=== PATIENT | male | born 1945 | race Caucasian/White ===

== ENCOUNTER 2020-03-15 13:12 | Inpatient (IN) ==
--- NOTE | 2020-03-15 13:49 | ERNOTE ---
Dyspnea - General Presenting Symptoms: shortness of breath Time Seen by Provider: 03/15/20 13:33 Source: patient Exam Limitations: no limitations - Immun/Allergies/Home Medications Immunizations: IMMUNIZATION HX Immunizations Up to Date Yes History of Influenza Vaccine Yes Hx Pneumococcal Vaccination Yes Allergies/Adverse Reactions: Allergies No Known Allergies Allergy (Unverified 03/15/20 13:25) Home Medications: HOME MEDICATIONS Acetaminophen [Mapap] 500 mg PO BID PRN 03/15/20 [Last Taken Unknown] Aspirin 81 mg PO DAILY 03/15/20 [Last Taken Unknown] Bumetanide 1 mg PO DAILY 03/15/20 [Last Taken Unknown] Carvedilol [Coreg] 6.25 mg PO BID 03/15/20 [Last Taken Unknown] Fexofenadine HCl 60 mg PO DAILY 03/15/20 [Last Taken Unknown] Fluticasone Propionate [Flovent Diskus] 50 mcg IH DAILY 03/15/20 [Last Taken Unknown] Insulin Aspart [Insulin Aspart Penfill] See Protocol SQ ACHS 03/15/20 [Last Taken Unknown] Insulin Detemir [Levemir] 44 units SC DAILY 03/15/20 [Last Taken Unknown] Leuprolide Acetate [Eligard] 45 mg SQ Q6M 03/15/20 [Last Taken Unknown] Loperamide HCl [Diamode] 2 mg PO BID 03/15/20 [Last Taken Unknown] Losartan Potassium 12.5 mg PO BID 03/15/20 [Last Taken Unknown] Melatonin 10 mg PO HS 03/15/20 [Last Taken Unknown] Montelukast Sodium 10 mg PO DAILY 03/15/20 [Last Taken Unknown] Multivit-Min/Iron Fum/Folic AC [Qvpkx-Ekgngdt-Vglvyobu Tablet] 1 ea PO DAILY 03/15/20 [Last Taken Unknown] Nitroglycerin 0.4 mg SL PRN PRN 03/15/20 [Last Taken Unknown] Saw [place] Fruit/Zinc Picoli [Saw [place] 450 mg Capsule] 900 mg PO DAILY 03/15/20 [Last Taken Unknown] Tamsulosin HCl [Flomax] 0.4 mg PO DAILY 03/15/20 [Last Taken Unknown] traZODone HCL [Trazodone HCl] 50 mg PO DAILY 03/15/20 [Last Taken Unknown] - History of Present Illness Narrative: states the patient has been weak for some time due to comorbidities but over the past few days he has gotten more more week where he can take 4 or 5 steps and then feels like he is going to fall. Patient's family does have Covid and did have exposure to them a week or more ago. Severity: moderate Initiating event: Reports: none Frequency of episodes: Reports: no prior episodes Review of Systems - Review of Systems Constitutional: Present: fatigue, malaise. Absent: recent illness, fever, chills EYE: Absent: vision changes ENT: Absent: nose congestion, nasal drainage Respiratory: Present: shortness of breath, cough Cardiology: Absent: chest pain, palpitations Gastrointestinal/Abdominal: Absent: nausea, vomiting, abdominal pain Genitourinary: Absent: frequency, dysuria Musculoskeletal: Absent: back pain, muscle pain Skin: Absent: rash Neurological: Present: dizziness/light-headedness. Absent: headache Endocrine: Present: excessive sweating Hematologic/Lymphatic: Absent: easy bruising, easy bleeding Medical History (Last Reviewed 03/15/20 @ 15:39 by Luis Enrique Gaviria DO) Alzheimer disease Alzheimer's dementia, late onset Diabetes mellitus History of diverticulitis History of left bundle branch block (LBBB) History of prostate cancer Hx of congestive heart failure Hx of diabetic retinopathy Hx of gastritis Hx of irritable bowel syndrome Hx of kidney disease Hx of rheumatoid arthritis Nonalcoholic fatty liver disease Sleep apnea Surgical History: Surgical History (Last Reviewed 03/15/20 @ 15:39 by Luis Enrique Gaviria DO) History of arthroplasty of right ankle Hx of cholecystectomy Hx of right knee surgery Hx of sinus surgery Family History: Family History (Last Reviewed 03/15/20 @ 15:39 by Luis Enrique Gaviria DO) Other No pertinent family history Social History: (Last Reviewed 03/15/20 @ 15:39 by Lusi Enrique Gaviria DO) Social History: lives independently: No household members: spouse caregiver/support person: Yes caregiver/support person comment: parent marital status: Service: No Tobacco: Smoking Status: Never smoker Alcohol: Alcohol type: beer alcohol intake frequency: a few times a month Substance Use: substance use type: does not use Physical Exam - Physical Exam General Appearance: Present: wd/wn, alert, no apparent distress Head Exam: Present: normal inspection, no evidence of injury Neck: Present: normal inspection, nontender, supple Respiratory: Present: no respiratory distress, normal breath sounds, lungs clear Cardiovascular/Chest: Present: regular rate, rhythm, no murmur Gastrointestinal/Abdominal: Present: normal bowel sounds, nontender, nondistended, soft Back Exam: Present: normal inspection, normal range of motion Extremity Exam: Present: normal inspection, normal range of motion, extremity edema Neurological Exam: Present: alert, oriented, normal mood/affect, no motor/sensory deficits Skin Exam: Present: normal color, warm/dry Lymphatic Exam: Present: no adenopathy Progress - Results and Orders Patient's Lab Results:: I have reviewed the patient's lab results. Results and Orders: Laboratory Tests 03/15/20 03/15/20 03/15/20 13:50 13:54 13:54 WBC 6.9 Hgb 10.0 L Hct 30.5 L Plt Count 259 D-Dimer Sodium 134 Potassium 4.2 Chloride 99 Carbon Dioxide 29.8 BUN 23 Creatinine 1.55 H Random Glucose 96 Lactic Acid, Venous Calcium 9.1 Total Bilirubin 0.4 AST 26 ALT 29 Alkaline Phosphatase 63 Troponin I 0.022 B-Natriuretic Peptide 754 H SARS-CoV-2 (PCR) Detected H 03/15/20 03/15/20 13:54 14:16 WBC Hgb Hct Plt Count D-Dimer 0.85 H Sodium Potassium Chloride Carbon Dioxide BUN Creatinine Random Glucose Lactic Acid, Venous 0.9 Calcium Total Bilirubin AST ALT Alkaline Phosphatase Troponin I B-Natriuretic Peptide SARS-CoV-2 (PCR) - Vital Signs Patient's Vital Signs:: I have reviewed the patient's vital signs. Vital Signs: Vital Signs 03/15/20 13:23 Temperature 36.6 C Pulse Rate 72 Respiratory Rate 22 H Blood Pressure 134/69 O2 Sat by Pulse Oximetry 91 L - EKG EKG #1 EKG: NSR, LBBB EKG read: Interp. by me - X-Ray X-Ray #1 X-Ray: chest Interpretation: Reviewed by me X-ray Comments: Findings: Heart size and vascularity appear within normal limits. There is elevation of the right hemidiaphragm nonspecific. There is focal consolidation in the left mid to lower lung field. This could be atelectasis or scarring but developing infiltrate must be considered. IMPRESSION: CONSOLIDATION LEFT MID TO LOWER LUNG FIELD ATELECTASIS/SCARRING VERSUS DEVELOPING INFILTRATE. NONSPECIFIC ELEVATION RIGHT HEMIDIAPHRAGM. Electronically signed by Harshil Angela M.D.. - Progress/Reassessment Chief Complaint: Dyspnea Progress Note-Subjective: 03/15/20 15:42 I spoke with the patient and his about admission and Covid positive status. They agreed to admission and expressed understanding. 03/15/20 15:[address] Pierre he initially agreed with admission and then called me back and stated he felt like this is a patient that could use outpatient oxygen and bamlanivimab. He stated he would call case management and get their opinion and assistance. 03/15/20 16:40 received a call back from Dr. Pierre and he requested observation admit. Departure Clinical Impression: Pneumonia due to COVID-19 virus, Hypoxia - Departure Disposition: Still a patient Condition: Stable
[2020-03-15 14:06] LABS: Hematocrit 30.5 % (42.0-52.0); Mean Cell Volume 90.8 fl (78-100); Mean Corpuscular Hemoglobin 29.8 pg (27-31); Mean Corpuscular Hgb Conc 32.8 g/dl (32-36); Neutrophil # 4.9 K/mm3 (1.3-6.0); Neutrophil % 71.9 % (42-75.0); Platelet Count 259 K/mm3 (150-450); Red Blood Count 3.36 M/mm3 (4.7-6.0); Red Cell Distribution Width 12.5 % (11.5-14.0); White Blood Count 6.9 K/mm3 (4.0-10.5)
[2020-03-15 14:30] LABS: Troponin I 0.022 ng/mL (0.00-0.10)
[2020-03-15 14:34] LABS: Albumin * 3.4 gm/dl (3.4-5.0); Anion Gap 9.4 mmol/L (6.8-13.8); BUN/Creatinine Ratio 14.8 (9.0-21.6); Bilirubin, Total 0.4 mg/dL (0.0-1.1); Ca. Corrected For Albumin 9.3 mg/dL (8.4-10.2); Calcium * 9.1 mg/dL (7.9-10.9); Carbon Dioxide 29.8 mmol/L (24-32.6); Potassium 4.2 mmol/L (3.4-4.6); Total Protein 7.1 gm/dL (6.2-8.2)
[2020-03-15 15:00] LABS: Urine Bilirubin Negative (NEGATIVE); Urine Blood 25 /ul (NEGATIVE); Urine Ketone Negative (NEGATIVE); Urine Nitrite Negative (NEGATIVE); Urine Protein Negative (NEGATIVE); Urine Specific Gravity 1.015 SP.GR. (1.005-1.030); Urine Urobilinogen Normal (NORMAL)
[2020-03-15 15:53] LABS: Urine Appearance Clear (CLEAR); Urine Bacteria TRACE; Urine Color Yellow; Urine WBC TRACE /hpf (0-5)
[2020-03-15] MEDS ORDERED: ENOXAPARIN SODIUM 100 MG/ML SYRG SC SCH (16:45)
[2020-03-15] MEDS ORDERED: ENOXAPARIN SODIUM 40 MG/0.4 ML SYRG SC SCH (18:00)
[2020-03-15] MEDS ORDERED: DEXAMETHASONE 4 MG TABLET PO ONE (18:05)
[2020-03-15] MEDS ORDERED: NORMAL SALINE 1,000 ML IV ONE (18:07)
--- NOTE | 2020-03-15 18:09 | HP ---
Chief Complaint - Chief Complaint Date of Service: 03/15/20 Time of Service: 18:09 Chief Complaint: Covid pneumonia, weakness, shortness of breath History of Present Illness: 74-year-old male came into the ER after 3 days of worsening shortness of breath, weakness, frequent falls. Patient found to be Covid positive. Lab work fairly benign: White count 6.9, hemoglobin and hematocrit 10 and 35, creatinine of 1.55 with a GFR 47, mildly elevated BNP at 754 but otherwise the rest was unremarkable. Patient initially satting around 88 to 89% on room air when he came in and was put on 2 L and it bumped up to 92 to 94% and he was comfortable. Patient without any respiratory distress. Due to weakness and patient being in the window to receive antiviral medication, he was placed in observation for treatment and physical therapy evaluation as well as oxygen administration to maintain appropriate sats. Patient did not require oxygen at home. Patient with significant advanced Alzheimer's dementia, insulin-dependent diabetes, history of congestive heart failure, chronic kidney disease, rheumatoid arthritis, sleep apnea. Patient is unknown to this facility. Medical History (Last Reviewed 03/15/20 @ 15:39 by Luis Enrique Gaviria DO) Alzheimer disease Alzheimer's dementia, late onset Diabetes mellitus History of diverticulitis History of left bundle branch block (LBBB) History of prostate cancer Hx of congestive heart failure Hx of diabetic retinopathy Hx of gastritis Hx of irritable bowel syndrome Hx of kidney disease Hx of rheumatoid arthritis Nonalcoholic fatty liver disease Sleep apnea Surgical History: Surgical History (Last Reviewed 03/15/20 @ 15:39 by Luis Enrique Gaviria DO) History of arthroplasty of right ankle Hx of cholecystectomy Hx of right knee surgery Hx of sinus surgery Family History: Family History (Last Reviewed 03/15/20 @ 15:39 by Luis Enrique Gaviria DO) Other No pertinent family history Social History: (Last Reviewed 03/15/20 @ 15:39 by Luis Enrique Gaviria DO) Social History: lives independently: No household members: spouse caregiver/support person: Yes caregiver/support person comment: parent marital status: Service: No Tobacco: Smoking Status: Never smoker Alcohol: Alcohol type: beer alcohol intake frequency: a few times a month Substance Use: substance use type: does not use Review Of Systems (GEN) - Review of Systems Additional Comments: Unable to obtain due to advanced mention. Patient does deny pain or shortness of breath at this time but unsure as to how much she is able to comprehend the questions he is being asked. Immunizations: IMMUNIZATION HX Immunizations Up to Date Yes History of Influenza Vaccine Yes Hx Pneumococcal Vaccination Yes Allergies/Adverse Reactions: Allergies Allergy/AdvReac Type Severity Reaction Status Date / Time No Known Allergies Allergy Unverified 03/15/20 13:25 Home Medications: HOME MEDICATIONS Acetaminophen [Mapap] 500 mg PO BID PRN 03/15/20 [Last Taken Unknown] Aspirin 81 mg PO DAILY 03/15/20 [Last Taken Unknown] Bumetanide 1 mg PO DAILY 03/15/20 [Last Taken Unknown] Carvedilol [Coreg] 6.25 mg PO BID 03/15/20 [Last Taken Unknown] Fexofenadine HCl 60 mg PO DAILY 03/15/20 [Last Taken Unknown] Fluticasone Propionate [Flovent Diskus] 50 mcg IH DAILY 03/15/20 [Last Taken Unknown] Insulin Aspart [Insulin Aspart Penfill] See Protocol SQ ACHS 03/15/20 [Last Taken Unknown] Insulin Detemir [Levemir] 44 units SC HS 03/15/20 [Last Taken Unknown] Leuprolide Acetate [Eligard] 45 mg SQ Q6M 03/15/20 [Last Taken Unknown] Loperamide HCl [Diamode] 4 mg PO BID 03/15/20 [Last Taken Unknown] Losartan Potassium 12.5 mg PO BID 03/15/20 [Last Taken Unknown] Melatonin 10 mg PO HS 03/15/20 [Last Taken Unknown] Montelukast Sodium 10 mg PO DAILY 03/15/20 [Last Taken Unknown] Multivit-Min/Iron Fum/Folic AC [Ycxmx-Lydhzjj-Owwksnjc Tablet] 1 ea PO DAILY 03/15/20 [Last Taken Unknown] Nitroglycerin 0.4 mg SL PRN PRN 03/15/20 [Last Taken Unknown] Saw [place] Fruit/Zinc Picoli [Saw [place] 450 mg Capsule] 900 mg PO DAILY 03/15/20 [Last Taken Unknown] Tamsulosin HCl [Flomax] 0.4 mg PO DAILY 03/15/20 [Last Taken Unknown] traZODone HCL [Trazodone HCl] 50 mg PO DAILY 03/15/20 [Last Taken Unknown] Exam - Exam Vital Signs: Vital Signs - Last Taken Temp 36.6 C 03/15/20 17:20 Pulse 76 03/15/20 17:20 Resp 20 03/15/20 17:20 BP 166/88 H 03/15/20 17:20 Pulse Ox 95 03/15/20 17:20 Constitutional: Present: Alert, Cooperative, Elderly, Obese. Absent: Oriented x3 - X1 ENT Exam: Present: hard of hearing Eye Exam: bilateral eye: normal inspection, EOMI Neck: Present: non-tender, supple Respiratory: Present: lungs clear, no respiratory distress, decreased breath sounds Cardiovascular/Chest: Present: regular rate, rhythm, no murmur Abdomen: Present: soft, nontender, nondistended Skin Exam: Present: normal color, warm/dry Appearance: Present: impaired insight, impaired recent memory Eye contact: Present: cooperative, good eye contact Thoughts: Present: normal mood /affect Diagnostic Studies: Abnormal Lab Results 03/15/20 03/15/20 03/15/20 Range/Units 13:50 13:54 13:54 RBC 3.36 L (4.7-6.0) M/mm3 Hgb 10.0 L (13.5-18.0) gm/dL Hct 30.5 L (42.0-52.0) % Lymphocytes % 9.5 L (20-51) % Monocytes % 9.8 H (0.0-9) % Eosinophils % 6.9 H (0.0-3.0) % Basophils % 1.6 H (0.0-1.0) % Lymphocytes # 0.65 L (1.5-3.5) k/mm3 D-Dimer (0.19-0.49) ug/mL Creatinine 1.55 H (0.4-1.4) mg/dL Est GFR (Non-Af Amer) 47 L (60-130) mL/min B-Natriuretic Peptide 754 H (5-350) pg/mL Urine Blood (NEGATIVE) /ul Urine RBC (0-5) /hpf SARS-CoV-2 (PCR) Detected H (NotDetected) 03/15/20 03/15/20 Range/Units 14:16 14:51 RBC (4.7-6.0) M/mm3 Hgb (13.5-18.0) gm/dL Hct (42.0-52.0) % Lymphocytes % (20-51) % Monocytes % (0.0-9) % Eosinophils % (0.0-3.0) % Basophils % (0.0-1.0) % Lymphocytes # (1.5-3.5) k/mm3 D-Dimer 0.85 H (0.19-0.49) ug/mL Creatinine (0.4-1.4) mg/dL Est GFR (Non-Af Amer) (60-130) mL/min B-Natriuretic Peptide (5-350) pg/mL Urine Blood 25 H (NEGATIVE) /ul Urine RBC 5-10 H (0-5) /hpf SARS-CoV-2 (PCR) (NotDetected) Laboratory Results WBC 6.9 K/mm3 (4.0-10.5) 03/15/20 13:54 RBC 3.36 M/mm3 (4.7-6.0) L 03/15/20 13:54 Hgb 10.0 gm/dL (13.5-18.0) L 03/15/20 13:54 Hct 30.5 % (42.0-52.0) L 03/15/20 13:54 MCV 90.8 fl (78-100) 03/15/20 13:54 MCH 29.8 pg (27-31) 03/15/20 13:54 MCHC 32.8 g/dl (32-36) 03/15/20 13:54 RDW 12.5 % (11.5-14.0) 03/15/20 13:54 Plt Count 259 K/mm3 (150-450) 03/15/20 13:54 MPV 9.0 fl (8-11.3) 03/15/20 13:54 Immature Gran % (Auto) 0.30 % (0.001-0.429) 03/15/20 13:54 Immature Gran # (Auto) 0.02 K/mm3 (0.000-0.0310) 03/15/20 13:54 Neutrophils % 71.9 % (42-75.0) 03/15/20 13:54 Lymphocytes % 9.5 % (20-51) L 03/15/20 13:54 Monocytes % 9.8 % (0.0-9) H 03/15/20 13:54 Eosinophils % 6.9 % (0.0-3.0) H 03/15/20 13:54 Basophils % 1.6 % (0.0-1.0) H 03/15/20 13:54 Nucleated RBC % 0.0 k/mm3 (0-1) 03/15/20 13:54 Neutrophils # 4.9 K/mm3 (1.3-6.0) 03/15/20 13:54 Lymphocytes # 0.65 k/mm3 (1.5-3.5) L 03/15/20 13:54 Monocytes # 0.7 k/mm3 (0.0-1.0) 03/15/20 13:54 Eosinophils # 0.5 k/mm3 (0.0-0.7) 03/15/20 13:54 Absolute Basophils 0.1 k/mm3 (0.0-0.1) 03/15/20 13:54 D-Dimer 0.85 ug/mL (0.19-0.49) H 03/15/20 14:16 Sodium 134 mmol/L (132-142) 03/15/20 13:54 Plasma Sodium 134 mmol/L (130-142) 03/15/20 13:54 Potassium 4.2 mmol/L (3.4-4.6) 03/15/20 13:54 Chloride 99 mmol/L (97-106) 03/15/20 13:54 Carbon Dioxide 29.8 mmol/L (24-32.6) 03/15/20 13:54 Anion Gap 9.4 mmol/L (6.8-13.8) 03/15/20 13:54 BUN 23 mg/dL (6-23) 03/15/20 13:54 Creatinine 1.55 mg/dL (0.4-1.4) H 03/15/20 13:54 Est GFR (Non-Af Amer) 47 mL/min (60-130) L 03/15/20 13:54 BUN/Creatinine Ratio 14.8 (9.0-21.6) 03/15/20 13:54 Random Glucose 96 mg/dL (70-110) 03/15/20 13:54 Lactic Acid, Venous 0.9 mmol/L (0.4-2.0) 03/15/20 13:54 Calcium 9.1 mg/dL (7.9-10.9) 03/15/20 13:54 Calcium Adj for Albumin 9.3 mg/dL (8.4-10.2) 03/15/20 13:54 Total Bilirubin 0.4 mg/dL (0.0-1.1) 03/15/20 13:54 AST 26 U/L (0-48) 03/15/20 13:54 ALT 29 U/L (19-67) 03/15/20 13:54 Alkaline Phosphatase 63 U/L (50-170) 03/15/20 13:54 Troponin I 0.017 ng/mL (0.00-0.10) 03/15/20 15:53 B-Natriuretic Peptide 754 pg/mL (5-350) H 03/15/20 13:54 Total Protein 7.1 gm/dL (6.2-8.2) 03/15/20 13:54 Albumin 3.4 gm/dl (3.4-5.0) 03/15/20 13:54 Urine Color Yellow 03/15/20 14:51 Urine Appearance Clear (CLEAR) 03/15/20 14:51 Urine pH 5.0 pH (5.0-7.0) 03/15/20 14:51 Ur Specific [place] 1.015 SP.GR. (1.005-1.030) 03/15/20 14:51 Urine Protein Negative mg/dL (NEGATIVE) 03/15/20 14:51 Urine Glucose (UA) Negative mg/dL (NEGATIVE) 03/15/20 14:51 Urine Ketones Negative mg/dL (NEGATIVE) 03/15/20 14:51 Urine Blood 25 /ul (NEGATIVE) H 03/15/20 14:51 Urine Nitrate Negative (NEGATIVE) 03/15/20 14:51 Urine Bilirubin Negative mg/dl (NEGATIVE) 03/15/20 14:51 Urine Urobilinogen Normal EU/dl (NORMAL) 03/15/20 14:51 Ur Leukocyte Esterase Negative /ul (NEGATIVE) 03/15/20 14:51 Urine RBC 5-10 /hpf (0-5) H 03/15/20 14:51 Urine WBC Trace /hpf (0-5) 03/15/20 14:51 Ur Epithelial Cells Trace /hpf (0-5) 03/15/20 14:51 Urine Bacteria Trace (NONE) 03/15/20 14:51 Urine Culture Comments No culture indicated 03/15/20 14:51 SARS-CoV-2 (PCR) Detected (NotDetected) H 03/15/20 13:50 Assessment/Plan - Narrative Narrative: 74-year-old male placed under observation due to recent COVID-19 pneumonia with hypoxia. X-ray shows small consolidation in the left middle lung which could be atelectasis versus scarring versus developing infiltrate. Otherwise fairly benign chest x-ray. Patient started on remdesivir, Decadron, Lovenox for Covid infection. will administer oxygen as needed to maintain sats above 92%. Due to his weakness and deconditioning from his dementia and his infection, will order PT to evaluate him. Patient is a DNR with advanced dementia, patient's has medical power of insurance defense attorney patient is really unable to understand the significance of his infection or his hospitalization at this time and asked if he can go home last night. Patient blood sugars and he came in were very well controlled, restarted his home insulin and also started sliding scale insulin. Will check blood sugars before meals at bedtime. Monitor kidney function, patient received 1 bag of normal saline as he does have an elevated creatinine but I do not know what his baseline is. Due to his history of CHF though we will gently fluid resuscitate him and stop fluids after that. We will see how patient does tomorrow with his oxygen, physical therapy. Hopefully home tomorrow with oxygen. Nurse will call questions or concerns. Consistent carbohydrate diet started for patient. No SCDs warranted at this time as he is on Lovenox. 1 hour critical care time spent with patient and determining treatment plan. - Assessment/Plan (1) Pneumonia due to COVID-19 virus Problem: Acute (2) Hypoxia Problem: Acute (3) Alzheimer's dementia Problem: Acute (4) CHF (congestive heart failure) Problem: Acute (5) Rheumatoid arthritis Problem: Acute (6) Insulin dependent diabetes mellitus Problem: Acute (7) Hypertension Problem: Acute (8) Chronic kidney disease (CKD) stage G3a/A1, moderately decreased glomerular filtration rate (GFR) between 45-59 mL/min/1.73 square meter and albuminuria creatinine ratio less than 30 mg/g Problem: Acute
[2020-03-15] MEDS ORDERED: REMDESIVIR 200 MG in NORMAL SALINE 210 ML IV ONE (19:00)
[2020-03-15] MEDS ORDERED: DEXAMETHASONE 2 MG TABLET ONE ×2 (20:20→20:23)
[2020-03-15] MEDS: LOSARTAN POTASSIUM 50 MG TABLET PO SCH (20:23)
[2020-03-15] MEDS: ACETAMINOPHEN 500 MG TABLET PO PRN (20:24)
[2020-03-15] MEDS: CARVEDILOL 6.25 MG TABLET PO SCH (20:25)
[2020-03-15] MEDS: LOPERAMIDE HCL 2 MG CAPSULE PO SCH (20:26)
[2020-03-15] MEDS: MELATONIN 3,000 MCG TABLET PO SCH (20:26)
[2020-03-15] MEDS: traZODone HCL 50 MG TABLET PO SCH (20:26)
[2020-03-15] MEDS: INSULIN LISPRO 100 UNITS/ML VIAL SC SCH (20:50)
[2020-03-15] MEDS ORDERED: MORPHINE SULFATE 2 MG/ML DISP.SYRIN IV ONE (21:40)
[2020-03-16] MEDS: MORPHINE SULFATE 2 MG/ML DISP.SYRIN IV PRN ×3 (02:35→12:53)
[2020-03-16 06:31] LABS: Albumin * 3.2 gm/dl (3.4-5.0); Anion Gap 9.9 mmol/L (6.8-13.8); BUN/Creatinine Ratio 14.3 (9.0-21.6); Bilirubin, Total 0.3 mg/dL (0.0-1.1); Ca. Corrected For Albumin 9.2 mg/dL (8.4-10.2); Calcium * 8.9 mg/dL (7.9-10.9); Carbon Dioxide 29.1 mmol/L (24-32.6)
[2020-03-16] MEDS: INSULIN LISPRO 100 UNITS/ML VIAL SC SCH ×4 (07:49→21:11)
[2020-03-16] MEDS ORDERED: INSULIN LISPRO 100 UNITS/ML VIAL SC ONE (08:22)
[2020-03-16] MEDS ORDERED: INSULIN DETEMIR 100 UNITS/ML VIAL SC SCH (09:00)
[2020-03-16] MEDS ORDERED: ENOXAPARIN SODIUM 40 MG/0.4 ML SYRG SC SCH (09:00)
[2020-03-16] MEDS: MONTELUKAST SODIUM 10 MG TABLET PO SCH (09:23)
[2020-03-16] MEDS: ASPIRIN 81 MG TAB.CHEW PO SCH (09:23)
[2020-03-16] MEDS: LOPERAMIDE HCL 2 MG CAPSULE PO SCH ×2 (09:23→20:51)
[2020-03-16] MEDS: CARVEDILOL 6.25 MG TABLET PO SCH ×2 (09:23→20:51)
[2020-03-16] MEDS: TAMSULOSIN HCL 0.4 MG CAP.SR.24H PO SCH (09:24)
[2020-03-16] MEDS: LORATADINE 10 MG TABLET PO SCH (09:27)
[2020-03-16] MEDS: LOSARTAN POTASSIUM 50 MG TABLET PO SCH ×2 (09:27→20:50)
[2020-03-16] MEDS: INSULIN GLARGINE,HUM.REC.ANLOG 100 UNITS/ML VIAL SC SCH (09:27)
[2020-03-16] MEDS: BUMETANIDE 1 MG TABLET PO SCH (09:27)
[2020-03-16] MEDS: BUDESONIDE IH SCH ×2 (09:28→20:51)
--- NOTE | 2020-03-16 09:55 | PN ---
Subjective - Date and Time Seen Date: 03/16/20 Time: 09:27 Objective - Vitals Vitals: Last Vital Signs Temp 37.1 C 03/16/20 07:40 Pulse 104 H 03/16/20 07:40 Resp 18 03/16/20 07:40 BP 166/98 H 03/16/20 07:40 Pulse Ox 91 L 03/16/20 07:40 - Abnormal Lab Findings Abnormal Lab Findings: Abnormal Lab Results 03/15/20 03/15/20 03/15/20 Range/Units 13:50 13:54 13:54 RBC 3.36 L (4.7-6.0) M/mm3 Hgb 10.0 L (13.5-18.0) gm/dL Hct 30.5 L (42.0-52.0) % Lymphocytes % 9.5 L (20-51) % Monocytes % 9.8 H (0.0-9) % Eosinophils % 6.9 H (0.0-3.0) % Basophils % 1.6 H (0.0-1.0) % Lymphocytes # 0.65 L (1.5-3.5) k/mm3 D-Dimer (0.19-0.49) ug/mL Sodium (132-142) mmol/L Potassium (3.4-4.6) mmol/L Creatinine 1.55 H (0.4-1.4) mg/dL Est GFR (Non-Af Amer) 47 L (60-130) mL/min Random Glucose (70-110) mg/dL B-Natriuretic Peptide 754 H (5-350) pg/mL Albumin (3.4-5.0) gm/dl Urine Blood (NEGATIVE) /ul Urine RBC (0-5) /hpf SARS-CoV-2 (PCR) Detected H (NotDetected) 03/15/20 03/15/20 03/16/20 Range/Units 14:16 14:51 06:10 RBC (4.7-6.0) M/mm3 Hgb (13.5-18.0) gm/dL Hct (42.0-52.0) % Lymphocytes % (20-51) % Monocytes % (0.0-9) % Eosinophils % (0.0-3.0) % Basophils % (0.0-1.0) % Lymphocytes # (1.5-3.5) k/mm3 D-Dimer 0.85 H (0.19-0.49) ug/mL Sodium 131 L (132-142) mmol/L Potassium 5.0 H (3.4-4.6) mmol/L Creatinine (0.4-1.4) mg/dL Est GFR (Non-Af Amer) 56 L (60-130) mL/min Random Glucose 346 H D (70-110) mg/dL B-Natriuretic Peptide (5-350) pg/mL Albumin 3.2 L (3.4-5.0) gm/dl Urine Blood 25 H (NEGATIVE) /ul Urine RBC 5-10 H (0-5) /hpf SARS-CoV-2 (PCR) (NotDetected) Assessment/Plan - Problems/Diagnosis (1) Pneumonia due to COVID-19 virus Problem: Acute (2) Hypoxia Problem: Acute (3) Alzheimer's dementia Problem: Acute (4) CHF (congestive heart failure) Problem: Acute (5) Rheumatoid arthritis Problem: Acute (6) Insulin dependent diabetes mellitus Problem: Acute (7) Hypertension Problem: Acute (8) Chronic kidney disease (CKD) stage G3a/A1, moderately decreased glomerular filtration rate (GFR) between 45-59 mL/min/1.73 square meter and albuminuria creatinine ratio less than 30 mg/g Problem: Acute
[2020-03-16] MEDS: traZODone HCL 50 MG TABLET PO SCH ×2 (10:08→20:50)
[2020-03-16] MEDS: ENOXAPARIN SODIUM 80 MG/0.8 ML DISP.SYRIN SC SCH ×2 (11:29→22:26)
--- NOTE | 2020-03-16 13:44 | PN ---
Subjective - Date and Time Seen Date: 03/16/20 Time: 13:43 Subjective Narrative: Patient from a respiratory standpoint is doing fine, currently weaning him off his oxygen. He is on remdesivir. Patient was climbing up and last night and fell. Had left hip pain, x-ray showed left intertrochanteric femur fracture. Due to patient's Alzheimer's dementia being fairly advanced as well as his other chronic comorbidities patient is not a good surgical candidate. Discussed with his family who want to make him comfort measures and he is going to go home Thursday with home hospice. Patient is pleasant, cannot recall falling down the night before. Cannot understand why his hip hurts. His vital signs are fairly stable, he is been afebrile. Repeat CMP this morning showed have a slightly elevated potassium the patient get his insulin yesterday which is also why sugar was is elevated as it was. Patient received an extra 20 units of short acting on top of his Lantus and his sliding scale. Will monitor blood sugars but currently patient looks well and is comfortable at this time. Objective Objective Narrative: Patient unable to answer most questions though he denies shortness of breath but endorses pain in his left hip - Review of Systems Respiratory: Denies: Cough, Shortness of Breath Musculoskeletal Complaints: Reports: Joint Pain - Vitals Vitals: Last Vital Signs Temp 37.4 C 03/16/20 12:07 Pulse 100 03/16/20 12:07 Resp 18 03/16/20 12:07 BP 124/74 03/16/20 12:07 Pulse Ox 96 03/16/20 12:07 - Abnormal Lab Findings Abnormal Lab Findings: Abnormal Lab Results 03/15/20 03/15/20 03/15/20 Range/Units 13:50 13:54 13:54 RBC 3.36 L (4.7-6.0) M/mm3 Hgb 10.0 L (13.5-18.0) gm/dL Hct 30.5 L (42.0-52.0) % Lymphocytes % 9.5 L (20-51) % Monocytes % 9.8 H (0.0-9) % Eosinophils % 6.9 H (0.0-3.0) % Basophils % 1.6 H (0.0-1.0) % Lymphocytes # 0.65 L (1.5-3.5) k/mm3 D-Dimer (0.19-0.49) ug/mL Sodium (132-142) mmol/L Potassium (3.4-4.6) mmol/L Creatinine 1.55 H (0.4-1.4) mg/dL Est GFR (Non-Af Amer) 47 L (60-130) mL/min Random Glucose (70-110) mg/dL B-Natriuretic Peptide 754 H (5-350) pg/mL Albumin (3.4-5.0) gm/dl Urine Blood (NEGATIVE) /ul Urine RBC (0-5) /hpf SARS-CoV-2 (PCR) Detected H (NotDetected) 03/15/20 03/15/20 03/16/20 Range/Units 14:16 14:51 06:10 RBC (4.7-6.0) M/mm3 Hgb (13.5-18.0) gm/dL Hct (42.0-52.0) % Lymphocytes % (20-51) % Monocytes % (0.0-9) % Eosinophils % (0.0-3.0) % Basophils % (0.0-1.0) % Lymphocytes # (1.5-3.5) k/mm3 D-Dimer 0.85 H (0.19-0.49) ug/mL Sodium 131 L (132-142) mmol/L Potassium 5.0 H (3.4-4.6) mmol/L Creatinine (0.4-1.4) mg/dL Est GFR (Non-Af Amer) 56 L (60-130) mL/min Random Glucose 346 H D (70-110) mg/dL B-Natriuretic Peptide (5-350) pg/mL Albumin 3.2 L (3.4-5.0) gm/dl Urine Blood 25 H (NEGATIVE) /ul Urine RBC 5-10 H (0-5) /hpf SARS-CoV-2 (PCR) (NotDetected) - Exam Constitutional: Present: Alert, Mild distress - Left hip pain. Absent: Oriented x3 - X1 Respiratory: Present: lungs clear, no respiratory distress, decreased breath sounds Cardiovascular/Chest: Present: regular rate, rhythm, no murmur Abdomen: Present: soft, nontender, nondistended Extremity: Present: normal capillary refill - Left lower extremity, leg pain Skin Exam: Present: normal color - Left lower extremity, warm/dry Appearance: Present: impaired insight, impaired recent memory Cauti Physician Documentation - Urinary Catheter Management Coude Date of Insertion: 03/16/20 Time of Insertion: 10:09 Assessment/Plan Plan Narrative: Patient stable from a respiratory standpoint. No acute distress. Currently being weaned off oxygen. Patient on day 2 of remdesivir. CMP appropriate. Mild hyperkalemia but should improve tomorrow with increasing insulin usage. Blood sugars elevated today as patient did not receive his regular insulin yesterday prior to coming to the hospital. He received an extra dose of 20 units of regular insulin on top of his sliding scale and his long-acting. Blood sugars this morning were 400, came down to just above 200. Doing much better. No concerns with this will continue to monitor. Sugars a CHS. As far as his left intertrochanteric hip fracture goes, patient is not a great candidate for surgery. Discussed this with orthopedic surgeon who is in agr eement with this. Discussed this with his family who agreed and decided to make him comfort care with plan to take him home in 3 days with home hospice. Morphine is ordered for his pain control. Otherwise patient is comfortable and has no issues at this time. Continues other chronic medications at this time. Consistent carb diet. Nurse to call with any questions or concerns. - Problems/Diagnosis (1) Intertrochanteric fracture of left hip Problem: Acute (2) Pneumonia due to COVID-19 virus Problem: Acute (3) Hypoxia Problem: Acute (4) Alzheimer's dementia Problem: Acute (5) CHF (congestive heart failure) Problem: Acute (6) Rheumatoid arthritis Problem: Acute (7) Insulin dependent diabetes mellitus Problem: Acute (8) Hypertension Problem: Acute (9) Chronic kidney disease (CKD) stage G3a/A1, moderately decreased glomerular filtration rate (GFR) between 45-59 mL/min/1.73 square meter and albuminuria creatinine ratio less than 30 mg/g Problem: Acute
[2020-03-16] MEDS: REMDESIVIR 100 MG in NORMAL SALINE 230 ML IV SCH (17:14)
[2020-03-16] MEDS: MELATONIN 3,000 MCG TABLET PO SCH (20:51)
[2020-03-17 07:13] LABS: Albumin * 3.1 gm/dl (3.4-5.0); Anion Gap 11.5 mmol/L (6.8-13.8); BUN/Creatinine Ratio 17.9 (9.0-21.6); Bilirubin, Total 0.4 mg/dL (0.0-1.1); Ca. Corrected For Albumin 9.1 mg/dL (8.4-10.2); Calcium * 8.7 mg/dL (7.9-10.9); Potassium 4.5 mmol/L (3.4-4.6); Total Protein 6.7 gm/dL (6.2-8.2)
[2020-03-17] MEDS: INSULIN LISPRO 100 UNITS/ML VIAL SC SCH ×4 (07:18→21:33)
[2020-03-17] MEDS: CARVEDILOL 6.25 MG TABLET PO SCH ×2 (08:02→21:22)
[2020-03-17] MEDS: MONTELUKAST SODIUM 10 MG TABLET PO SCH (08:02)
[2020-03-17] MEDS: TAMSULOSIN HCL 0.4 MG CAP.SR.24H PO SCH (08:02)
[2020-03-17] MEDS: ASPIRIN 81 MG TAB.CHEW PO SCH (08:02)
[2020-03-17] MEDS: LOPERAMIDE HCL 2 MG CAPSULE PO SCH ×2 (08:03→21:23)
[2020-03-17] MEDS: INSULIN GLARGINE,HUM.REC.ANLOG 100 UNITS/ML VIAL SC SCH (08:03)
[2020-03-17] MEDS: LORATADINE 10 MG TABLET PO SCH (08:03)
[2020-03-17] MEDS: LOSARTAN POTASSIUM 50 MG TABLET PO SCH ×2 (08:03→21:22)
[2020-03-17] MEDS: BUMETANIDE 1 MG TABLET PO SCH (08:03)
[2020-03-17] MEDS: BUDESONIDE IH SCH ×2 (08:04→21:24)
[2020-03-17] MEDS: MORPHINE SULFATE 2 MG/ML DISP.SYRIN IV PRN ×3 (08:33→13:47)
--- NOTE | 2020-03-17 10:14 | PN ---
Subjective - Date and Time Seen Date: 03/17/20 Subjective Narrative: His hip pain appears to be controlled. Denies dyspnea. Is tolerating a diet. His chest feels a bit tight. His reported that he can get a bit belligerent at home and asked for sedation. Objective - Review of Systems Generalized/Overall Review: Denies: Fever Respiratory: Reports: Shortness of Breath. Denies: Cough Cardiac: Reports: Chest Pain - tightness Abdominal: Denies: Nausea, Vomiting, Diarrhea Genitourinary Symptoms: Reports: No Symptoms Reported Musculoskeletal Complaints: Reports: Joint Pain - left hip - Vitals Vitals: Last Vital Signs Temp 36.6 C 03/17/20 05:35 Pulse 90 03/17/20 08:03 Resp 20 03/17/20 05:35 BP 161/79 H 03/17/20 08:03 Pulse Ox 90 L 03/17/20 05:35 - Abnormal Lab Findings Abnormal Lab Findings: Abnormal Lab Results 03/17/20 Range/Units 06:50 BUN 31 H D (6-23) mg/dL Creatinine 1.73 H D (0.4-1.4) mg/dL Est GFR (Non-Af Amer) 41 L D (60-130) mL/min Random Glucose 348 H (70-110) mg/dL Albumin 3.1 L (3.4-5.0) gm/dl - Exam Constitutional: Present: Alert, Cooperative, No distress, Elderly. Absent: Oriented x3 Respiratory: Present: normal breath sounds, no respiratory distress, other - oxygenating at 93% on 1 L via NC Cardiovascular/Chest: Present: regular rate, rhythm Abdomen: Present: soft, nontender Extremity: Present: lower extremity edema - bilateral, trace Eye contact: Present: cooperative, good eye contact Cauti Physician Documentation - Urinary Catheter Management Coude Date of Insertion: 03/16/20 Time of Insertion: 10:09 Assessment/Plan Plan Narrative: Mr. Phillips was admitted for COVID pneumonia on 03/15, and fortunately fell in his hospital room, sustaining a left intertrochanteric hip fracture. Family has opted to pursue comfort measures only and not undergo surgical repair, given his baseline comorbidities. He has Alzheimer's dementia. They are planning on taking him home with hospice on Thursday. We will add lorazepam in case he gets agitated, and continue pain control with IV morphine and Tylenol. He is currently using 1 L oxygen, and oxygenating in the low 90s. Will wean as tolerated. We will continue his insulin regimen, as his blood sugars have been often greater than 300. His blood sugar has been fluctuating, so will not increase his baseline insulin, but will continue moderate dose sliding scale insulin. - Problems/Diagnosis (1) Pneumonia due to COVID-19 virus Problem: Acute (2) Intertrochanteric fracture of left hip Problem: Acute (3) Alzheimer's dementia Problem: Chronic (4) CHF (congestive heart failure) Problem: Chronic (5) Chronic kidney disease (CKD) stage G3a/A1, moderately decreased glomerular filtration rate (GFR) between 45-59 mL/min/1.73 square meter and albuminuria creatinine ratio less than 30 mg/g Problem: Chronic (6) Hypertension Problem: Chronic (7) Hypoxia Problem: Acute (8) Insulin dependent diabetes mellitus Problem: Chronic (9) Rheumatoid arthritis Problem: Chronic
[2020-03-17] MEDS: ENOXAPARIN SODIUM 80 MG/0.8 ML DISP.SYRIN SC SCH ×2 (10:29→22:13)
[2020-03-17] MEDS ORDERED: ONDANSETRON HCL/PF 2 MG/ML VIAL IV PRN (11:57)
[2020-03-17] MEDS: REMDESIVIR 100 MG in NORMAL SALINE 230 ML IV SCH (17:36)
[2020-03-17] MEDS: ACETAMINOPHEN 500 MG TABLET PO PRN (19:13)
[2020-03-17] MEDS: traZODone HCL 50 MG TABLET PO SCH (21:23)
[2020-03-17] MEDS: MELATONIN 3,000 MCG TABLET PO SCH (21:23)
[2020-03-18] MEDS: LORazepam 2 MG/ML DISP.SYRIN IV PRN ×2 (03:08→20:50)
[2020-03-18] MEDS: MORPHINE SULFATE 2 MG/ML DISP.SYRIN IV PRN ×2 (03:08→17:05)
[2020-03-18] MEDS: INSULIN LISPRO 100 UNITS/ML VIAL SC SCH ×4 (07:15→21:00)
[2020-03-18 07:16] LABS: Albumin * 2.8 gm/dl (3.4-5.0); BUN/Creatinine Ratio 21.5 (9.0-21.6); Bilirubin, Total 0.5 mg/dL (0.0-1.1); Ca. Corrected For Albumin 9.1 mg/dL (8.4-10.2); Calcium * 8.5 mg/dL (7.9-10.9); Carbon Dioxide 29.2 mmol/L (24-32.6); Potassium 4.2 mmol/L (3.4-4.6); Total Protein 6.6 gm/dL (6.2-8.2)
[2020-03-18] MEDS: MONTELUKAST SODIUM 10 MG TABLET PO SCH (08:45)
[2020-03-18] MEDS: BUMETANIDE 1 MG TABLET PO SCH (08:45)
[2020-03-18] MEDS: LOSARTAN POTASSIUM 50 MG TABLET PO SCH (08:45)
[2020-03-18] MEDS: LORATADINE 10 MG TABLET PO SCH (08:45)
[2020-03-18] MEDS: TAMSULOSIN HCL 0.4 MG CAP.SR.24H PO SCH (08:45)
[2020-03-18] MEDS: CARVEDILOL 6.25 MG TABLET PO SCH ×2 (08:45→20:50)
[2020-03-18] MEDS: ASPIRIN 81 MG TAB.CHEW PO SCH (08:45)
[2020-03-18] MEDS: LOPERAMIDE HCL 2 MG CAPSULE PO SCH ×2 (08:45→20:48)
[2020-03-18] MEDS: BUDESONIDE IH SCH ×2 (08:46→20:48)
[2020-03-18] MEDS: INSULIN GLARGINE,HUM.REC.ANLOG 100 UNITS/ML VIAL SC SCH (08:46)
[2020-03-18] MEDS: ENOXAPARIN SODIUM 80 MG/0.8 ML DISP.SYRIN SC SCH ×2 (10:23→21:32)
--- NOTE | 2020-03-18 12:34 | PN ---
Subjective - Date and Time Seen Date: 03/18/20 Time: 12:20 Subjective Narrative: He had some agitation overnight. He had a fever of 38.1 yesterday afternoon and was given Tylenol. Otherwise, no new concerns. Objective - Review of Systems Generalized/Overall Review: Reports: Weakness Respiratory: Denies: Shortness of Breath Cardiac: Denies: Edema Abdominal: Reports: No Symptoms Reported Musculoskeletal Complaints: Reports: Joint Pain - left hip Neurological: Reports: Other - agitation - Vitals Vitals: Last Vital Signs Temp 37.6 C 03/18/20 06:34 Pulse 89 03/18/20 08:45 Resp 16 03/18/20 06:34 BP 116/57 03/18/20 08:45 Pulse Ox 90 L 03/18/20 06:34 - Abnormal Lab Findings Abnormal Lab Findings: Abnormal Lab Results 03/18/20 Range/Units 06:50 BUN 40 H (6-23) mg/dL Creatinine 1.86 H (0.4-1.4) mg/dL Est GFR (Non-Af Amer) 38 L (60-130) mL/min Random Glucose 295 H (70-110) mg/dL ALT 17 L (19-67) U/L Albumin 2.8 L (3.4-5.0) gm/dl - Exam Constitutional: Present: No distress, Other - wakens minimally for exam, Elderly Respiratory: Present: lungs clear, normal breath sounds, other - oxygenating in low 90's on 2 L via NC Cardiovascular/Chest: Present: regular rate, rhythm Abdomen: Present: soft, nontender Extremity: Present: lower extremity edema - bilateral, trace Appearance: Present: impaired insight, impaired recent memory, impaired remote memory Cauti Physician Documentation - Urinary Catheter Management Coude Date of Insertion: 03/16/20 Time of Insertion: 10:09 Assessment/Plan Plan Narrative: Mr. Phillips was admitted for COVID pneumonia on 03/15, and fortunately fell in his hospital room, sustaining a left intertrochanteric hip fracture. Family has opted to pursue comfort measures only and not undergo surgical repair, given his baseline comorbidities. He has Alzheimer's dementia. They are planning on taking him home with hospice on tomorrow, and hospice consult placed. Pain appears to be controlled. Lorazepam added for agitation. He is more somnolent this morning, which may be due to the lorazepam. When family would like, can decrease his chronic meds like coreg. Many of his chronic meds are also for symptom management, however. Can continue the remdesivir for 5 days or until D C, whichever comes first. Will hold losartan for somewhat low BP at 109/54. Blood glucose has been fluctuating, from 142-397 yesterday. We will not increase basal insulin, to avoid hypoglycemia, and will continue sliding scale insulin. - Problems/Diagnosis (1) Pneumonia due to COVID-19 virus Problem: Acute (2) Intertrochanteric fracture of left hip Problem: Acute (3) Alzheimer's dementia Problem: Chronic (4) CHF (congestive heart failure) Problem: Chronic (5) Chronic kidney disease (CKD) stage G3a/A1, moderately decreased glomerular filtration rate (GFR) between 45-59 mL/min/1.73 square meter and albuminuria creatinine ratio less than 30 mg/g Problem: Chronic (6) Hypertension Problem: Chronic (7) Hypoxia Problem: Acute (8) Insulin dependent diabetes mellitus Problem: Chronic (9) Rheumatoid arthritis Problem: Chronic
[2020-03-18] MEDS: REMDESIVIR 100 MG in NORMAL SALINE 230 ML IV SCH (16:53)
[2020-03-18] MEDS: MELATONIN 3,000 MCG TABLET PO SCH (20:48)
[2020-03-18] MEDS: traZODone HCL 50 MG TABLET PO SCH (20:49)
[2020-03-19] MEDS: MORPHINE SULFATE 2 MG/ML DISP.SYRIN IV PRN ×2 (03:03→12:49)
[2020-03-19 05:30] LABS: Albumin * 2.6 gm/dl (3.4-5.0); BUN/Creatinine Ratio 25.8 (9.0-21.6); Bilirubin, Total 0.5 mg/dL (0.0-1.1); Ca. Corrected For Albumin 8.6 mg/dL (8.4-10.2); Calcium * 7.8 mg/dL (7.9-10.9); Total Protein 6.3 gm/dL (6.2-8.2)
[2020-03-19] MEDS: INSULIN LISPRO 100 UNITS/ML VIAL SC SCH ×2 (07:45→11:57)
[2020-03-19] MEDS: CARVEDILOL 6.25 MG TABLET PO SCH ×2 (08:37→08:59)
[2020-03-19] MEDS: BUMETANIDE 1 MG TABLET PO SCH ×2 (08:37→08:59)
[2020-03-19] MEDS: BUDESONIDE IH SCH ×2 (08:37→08:59)
[2020-03-19] MEDS: LOPERAMIDE HCL 2 MG CAPSULE PO SCH ×2 (08:37→08:59)
[2020-03-19] MEDS: MONTELUKAST SODIUM 10 MG TABLET PO SCH ×2 (08:37→08:59)
[2020-03-19] MEDS: ASPIRIN 81 MG TAB.CHEW PO SCH ×2 (08:37→08:59)
[2020-03-19] MEDS: TAMSULOSIN HCL 0.4 MG CAP.SR.24H PO SCH ×2 (08:38→08:59)
[2020-03-19] MEDS: LORazepam 2 MG/ML DISP.SYRIN IV PRN (08:38)
[2020-03-19] MEDS: INSULIN GLARGINE,HUM.REC.ANLOG 100 UNITS/ML VIAL SC SCH (08:38)
[2020-03-19] MEDS: LORATADINE 10 MG TABLET PO SCH ×2 (08:38→08:59)
[2020-03-19 10:28] VITALS: BP 141/71
--- NOTE | 2020-03-19 10:48 | DS ---
(1) Intertrochanteric fracture of left hip Problem: Acute (2) Pneumonia due to COVID-19 virus Problem: Acute (3) Hypoxia Problem: Acute (4) Alzheimer's dementia Problem: Chronic (5) CHF (congestive heart failure) Problem: Chronic (6) Rheumatoid arthritis Problem: Chronic (7) Insulin dependent diabetes mellitus Problem: Chronic (8) Hypertension Problem: Chronic (9) Chronic kidney disease (CKD) stage G3a/A1, moderately decreased glomerular filtration rate (GFR) between 45-59 mL/min/1.73 square meter and albuminuria creatinine ratio less than 30 mg/g Problem: Chronic Date of Discharge:: 03/19/20 Hospital Course: 74-year-old male with history of advanced Alzheimer's dementia presented to the hospital with shortness of breath and weakness. Patient diagnosed with COVID-19 pneumonia and was started on antiviral medication. Patient unfortunately had a fall during his stay here which resulted in left intertrochanteric femur fracture. It was determined that he was not a good surgical candidate and after careful consideration with the family and Ortho team, we all came to the understanding that it was best for him to be discharged home under hospice care and to be made comfortable. Patient will be discharged home with morphine, Ativan, and Haldol. While here patient has been slightly agitated which improved with the above-stated medicines. Otherwise vital signs been stable and has been afebrile. Patient did receive 4 days of the antiviral medicine for COVID-19 pneumonia but this will be discontinued. All nonessential medicines will also be discontinued. We will continue long-acting insulin for the time being but as patient continues to have decreased oral intake, this will need to be adjusted/discontinued as well. Patient will be discharged home with from [facility], medications have been sent to his pharmacy. Procedures Performed: none Results and Findings: Lab Pending Results 03/15/20 13:50: SARS-CoV-2 (PCR) Detected H 03/15/20 13:54: WBC 6.9, RBC 3.36 L, Hgb 10.0 L, Hct 30.5 L, MCV 90.8, MCH 29.8, MCHC 32.8, RDW 12.5, Plt Count 259, MPV 9.0, Immature Gran % (Auto) 0.30, Immature Gran # (Auto) 0.02, Neutrophils % 71.9, Lymphocytes % 9.5 L, Monocytes % 9.8 H, Eosinophils % 6.9 H, Basophils % 1.6 H, Nucleated RBC % 0.0, Neutrophils # 4.9, Lymphocytes # 0.65 L, Monocytes # 0.7, Eosinophils # 0.5, Absolute Basophils 0.1 03/15/20 13:54: Sodium 134, Plasma Sodium 134, Potassium 4.2, Chloride 99, Carbon Dioxide 29.8, Anion Gap 9.4, BUN 23, Creatinine 1.55 H, Est GFR (Non-Af Amer) 47 L, BUN/Creatinine Ratio 14.8, Random Glucose 96, Calcium 9.1, Calcium Adj for Albumin 9.3, Total Bilirubin 0.4, AST 26, ALT 29, Alkaline Phosphatase 63, Troponin I 0.022, B-Natriuretic Peptide 754 H, Total Protein 7.1, Albumin 3.4 03/15/20 13:54: Lactic Acid, Venous 0.9 03/15/20 14:16: D-Dimer 0.85 H 03/15/20 14:51: Urine Color Yellow, Urine Appearance Clear, Urine pH 5.0, Ur Specific [place] 1.015, Urine Protein Negative, Urine Glucose (UA) Negative, Urine Ketones Negative, Urine Blood 25 H, Urine Nitrate Negative, Urine Bilirubin Negative, Urine Urobilinogen Normal, Ur Leukocyte Esterase Negative, Urine RBC 5-10 H, Urine WBC Trace, Ur Epithelial Cells Trace, Urine Bacteria Trace, Urine Culture Comments No culture indicated 03/15/20 15:53: Troponin I 0.017 03/16/20 06:10: Sodium 131 L, Plasma Sodium 135, Potassium 5.0 H, Chloride 97, Carbon Dioxide 29.1, Anion Gap 9.9, BUN 19, Creatinine 1.33, Est GFR (Non-Af Amer) 56 L, BUN/Creatinine Ratio 14.3, Random Glucose 346 H D, Calcium 8.9, Calcium Adj for Albumin 9.2, Total Bilirubin 0.3, AST 21, ALT 30, Alkaline Phosphatase 62, Total Protein 7.0, Albumin 3.2 L 03/17/20 06:50: Sodium 132, Plasma Sodium 136, Potassium 4.5, Chloride 97, Carbon Dioxide 28.0, Anion Gap 11.5, BUN 31 H D, Creatinine 1.73 H D, Est GFR (Non-Af Amer) 41 L D, BUN/Creatinine Ratio 17.9, Random Glucose 348 H, Calcium 8.7, Calcium Adj for Albumin 9.1, Total Bilirubin 0.4, AST 16, ALT 24, Alkaline Phosphatase 62, Total Protein 6.7, Albumin 3.1 L 03/18/20 06:50: Sodium 134, Plasma Sodium 137, Potassium 4.2, Chloride 99, Carbon Dioxide 29.2, Anion Gap 10.0, BUN 40 H, Creatinine 1.86 H, Est GFR (Non- Af Amer) 38 L, BUN/Creatinine Ratio 21.5, Random Glucose 295 H, Calcium 8.5, Calcium Adj for Albumin 9.1, Total Bilirubin 0.5, AST 14, ALT 17 L, Alkaline Phosphatase 61, Total Protein 6.6, Albumin 2.8 L 03/19/20 05:10: Sodium 136, Plasma Sodium 139, Potassium 4.0, Chloride 100, Carbon Dioxide 30.0, Anion Gap 10.0, BUN 59 H, Creatinine 2.29 H D, Est GFR (Non-Af Amer) 30 L D, BUN/Creatinine Ratio 25.8 H, Random Glucose 284 H, Calcium 7.8 L, Calcium Adj for Albumin 8.6, Total Bilirubin 0.5, AST 14, ALT 16 L, Alkaline Phosphatase 62, Total Protein 6.3, Albumin 2.6 L Discharge Location: Home Disposition: Hospice Home Home Health Agency: [facility] Hospice Condition: Stable Discharge Activity: Activity as tolerated Discharge Diet: General/regular food Prescriptions (Any new or edited meds): Lorazepam [Ativan Intensol] 2 mg PO .Q2HR #30 oral.conc Transmission Status: Sent to [facility] Haloperidol Lactate [Haldol Oral Concentrate] 2 mg PO TID #10 btl Transmission Status: Pending to [facility] Morphine Sulfate 2 mg PO .1HR PRN #50 solution PRN Reason: .restlessness Transmission Status: Sent to [facility] Complete Home Medications List: Complete Home Medication List: Insulin Detemir [Levemir] 44 units SC HS 03/15/20 Haloperidol Lactate [Haldol Oral Concentrate] 2 mg PO TID #10 btl 03/19/20 Lorazepam [Ativan Intensol] 2 mg PO .Q2HR #30 oral.conc 03/19/20 Morphine Sulfate 2 mg PO .1HR PRN #50 solution 03/19/20 Forms: Patient Portal Registration
[2020-03-19] MEDS: ENOXAPARIN SODIUM 80 MG/0.8 ML DISP.SYRIN SC SCH (11:06)
== END 2020-03-19 14:18 | disposition hospice, home (50) | DRG 177 ==
LOC: SCU 13:12 → ER 13:12 → SCU 17:00
PROVIDERS: ADMIT Family Medicine; ATTEND Family Medicine
DX: S72.142A Displaced intertrochanteric fracture of left femur, initial encounter for closed fracture; R09.02 Hypoxemia; N18.30 Chronic kidney disease, stage 3 unspecified; F02.80 Dementia in other diseases classified elsewhere, unspecified severity, without behavioral disturbance, psychotic disturbance, mood disturbance, and anxiety; Z79.4 Long term (current) use of insulin; W19.XXXA Unspecified fall, initial encounter; I13.0 Hypertensive heart and chronic kidney disease with heart failure and stage 1 through stage 4 chronic kidney disease, or unspecified chronic kidney disease; R06.00 Dyspnea, unspecified; U07.1 COVID-19; R53.1 Weakness; Y92.239 Unspecified place in hospital as the place of occurrence of the external cause; E11.22 Type 2 diabetes mellitus with diabetic chronic kidney disease; G30.9 Alzheimer's disease, unspecified; J12.82 Pneumonia due to coronavirus disease 2019; I50.9 Heart failure, unspecified